=== PATIENT | male | born 1955 | race Caucasian/White ===

== ENCOUNTER 2021-08-16 06:24 | Observation (INO) | payer OTHER ==
[~2021-08-16] VITALS: Ht 180.3 cm; Wt 105.0 kg
--- NOTE | 2021-08-16 06:38 | PHYS DOC ---
Past Medical History Past Medical History: Diabetes-Type II, Hypertension Smoking Status: Never Smoker Alcohol Use: None Drug Use: None General Adult EDM: Chief Complaint: NEURO SYMPTOMS/DEFICITS HPI: HPI: Patient is a 66 year old male who was brought in by EMS, from his work at [employer], for intermittent episodes of left-sided weakness, specifically left arm and left leg weakness. He reports that symptoms began around 11 PM last night. He had a total of 3 episodes, the last of which occurred shortly prior to arrival. He reports that he feels fine now. He denies chest pain, dyspnea, palpitations. He does report a mild headache. He denies dizziness, vertigo. He denies syncope or near syncope. He denies head injury. He denies neck pain or back pain. He reports that he felt like his left leg almost gave out while he was at work this morning. He denies any actual fall or trauma. He reports that he felt like his foot "fell asleep" briefly last night, but he denies any current paresthesias symptoms at present. No previous similar symptoms. He has diabetes and hypertension. He reports that he recently started taking amlodipine, and he wondered if possibly this medication was affecting his current symptoms. He reports that his younger brother has had a history of DC and stroke at a much younger age than he is currently. He denies any previous history of TIA or stroke. He is not taking any anticoagulant medication. Review of Systems: Review of Systems: Constitutional: Denies fever or chills. [] Eyes: Denies change in visual acuity. No vision loss. HENT: Denies nasal congestion or sore throat. [] Respiratory: Denies cough or shortness of breath. [] Cardiovascular: Denies chest pain or edema. [] GI: Denies abdominal pain, nausea, vomiting Musculoskeletal: Denies back pain, neck pain or joint pain. [] Integument: Denies rash. [] Neurologic: He reports mild headache symptoms. He denies dizziness, vertigo, syncope. He reported brief and resolved tingling in his left foot and also reports intermittent left upper extremity and left lower extremity weakness. Psychiatric: Anxiety as it pertains to current clinical condition only. Heart Score: C/O Chest Pain: No Risk Factors: Risk Factors: DM, Current or recent (<one month) smoker, HTN, HLP, family history of CAD, obesity. Risk Scores: Score 0 - 3: 2.5% MACE over next 6 weeks - Discharge Home Score 4 - 6: 20.3% MACE over next 6 weeks - Admit for Clinical Observation Score 7 - 10: 72.7% MACE over next 6 weeks - Early Invasive Strategies Physical Exam: PE: Constitutional: Well developed, well nourished, no acute distress, non-toxic appearance. [] HENT: Normocephalic, atraumatic, oropharynx is patent and clear, no dental trauma, mucous membranes are moist. TMs are clear bilaterally. Eyes: PERRL, EOMI, conjunctiva normal, no discharge. No nystagmus. No scleral icterus Neck: Normal range of motion, no tenderness, supple, no stridor. Trachea is midline. No JVD Cardiovascular:Heart rate regular rhythm, was 2 radial and +2 posterior tibial pulses bilaterally, no peripheral edema, no cyanosis, warm and well-perfused Lungs & Thorax: Bilateral breath sounds clear to auscultation, no rales, rhonchi or wheezes Abdomen: Abdomen soft, nondistended, nontender to palpation. No palpable pulsatile mass. No audible bruit. Normal bowel sounds, no flank abdominal ecchymoses. Skin: Warm, dry, no erythema, no rash. [] Back: No tenderness, no CVA tenderness. [] Extremities: No tenderness, no cyanosis, no clubbing, ROM intact, no edema. No calf tenderness. Neurologic: He is awake, alert, oriented x3, cranial nerves II through XII grossly intact, 5 out of 5 motor strength all 4 extremities, no limb ataxia, no pronator drift or dysmetria, sensation is grossly intact, no visual deficits, speech is clear and fluent, gait is steady, NIH is 0 Psychologic: Affect normal, judgement normal, mood normal. [] EKG: EKG: EKG is interpreted at 0641 Rhythm is sinus Rate is 82 bpm No STEMI Radiology/Procedures: Radiology/Procedures: IMAGING REPORT Signed PATIENT: PERLITA SETH ACCOUNT: [id number] : 1955 LOCATION: ER AGE: 66 SEX: M EXAM STATUS: PRE ER ORD. PHYSICIAN: STEPHEN SMITH DO REASON: left sided weakness PROCEDURE: PORTABLE CHEST 1V EXAM: CHEST ONE VIEW. HISTORY: Left weakness. COMPARISON: None. FINDINGS: A frontal view of the chest is obtained. The right hemidiaphragm is moderately elevated. There is mild atelectasis in both bases. There is no pneumothorax or pleural effusion. The heart is moderately enlarged. IMPRESSION: 1. Moderate cardiomegaly. Electronically signed by: Mari Eli MD (08/16/2021 7:02 AM) [id number] DICTATED and SIGNED BY: GAVI ELI MD DATE: 08/16/[id number] 0 IMAGING REPORT Signed PATIENT: PERLITA SETH ACCOUNT: [id number] : 1955 LOCATION: ER AGE: 66 SEX: M EXAM STATUS: PRE ER ORD. PHYSICIAN: STEPHEN SMITH DO REASON: left sided weakness PROCEDURE: CT HEAD WO CONTRAST EXAM: CT HEAD WITHOUT CONTRAST. HISTORY: Left weakness. TECHNIQUE: Computed tomography of the head was performed without intravenous contrast. One or more of the following individualized dose reduction techniques were utilized for this examination: 1. Automated exposure control. 2. Adjustment of the mA and/or kV according to patient size. 3. Use of iterative reconstruction technique. COMPARISON: None. FINDINGS: There is no intracranial hemorrhage. Hypoattenuation within the periventricular white matter indicates mild chronic microangiopathic change. The ventricles are normal in size and position. The visualized paranasal sinuses appear clear. The orbits are unremarkable. The temporal bones are unremarkable. The calvarium reveals no suspicious lesions. IMPRESSION: 1. No acute intracranial findings. 2. Mild chronic microangiopathic white matter change. Electronically signed by: Mari Eli MD (08/16/2021 7:06 AM) [id number] DICTATED and SIGNED BY: GAVI ELI MD DATE: 08/16/[id number] 0 Course & Med Decision Making: Course & Med Decision Making Pertinent Labs and Imaging studies reviewed. (See chart for details) I discussed the findings, differential diagnosis and plan of care with the patient. He has a nonfocal neurologic exam. He remains asymptomatic at present. CT head is negative for acute intracranial hemorrhage hemorrhage or obvious large infarct. He is given p.o. aspirin. I have discussed my recommendation for admission to the hospital, he is comfortable with this. He is accepted by Dr. Garrison. As of 758, BP is 147/82, HR 70 and sinus. No antihypertensive medications given. He is admitted in stable condition. Dragon Disclaimer: Dragon Disclaimer: This electronic medical record was generated, in whole or in part, using a voice recognition dictation system. Departure Departure Impression: Primary Impression: TIA (transient ischemic attack) Disposition: ADMITTED INPATIENT Admitting Physician: LEIA (Dr. Garrison) Condition: STABLE SARAH,STEPHEN Kellie DO Aug 16, 2021 06:38
[2021-08-16 07:00] LABS: BASO % 0 % (0-3); EOS # 0.3 x10^3/uL (0.0-0.7); EOS % 3 % (0-3); HEMATOCRIT 42.7 % (39.0-53.0); LYMPH # 2.2 x10^3/uL (1.0-4.8); LYMPH % 18 % (24-48); MEAN CORPUSCULAR HEMOGLOBIN 30 pg (25-35); MEAN CORPUSCULAR HGB CONC 35 g/dL (31-37); MEAN CORPUSCULAR VOLUME 85 fL (79-100); MONO # 0.8 x10^3/uL (0.0-1.1); MONO % 6 % (0-9); NEUT # 8.8 x10^3/uL (1.8-7.7); NEUT % 72 % (31-73); PLATELET COUNT 158 x10^3/uL (140-400); RED BLOOD COUNT 5.06 x10^6/uL (4.30-5.70); RED CELL DISTRIBUTION WIDTH 14.4 % (11.5-14.5); WHITE BLOOD COUNT 12.2 x10^3/uL (4.0-11.0)
--- NOTE | 2021-08-16 07:04 | RAD ---
EXAM: CHEST ONE VIEW. HISTORY: Left weakness. COMPARISON: None. FINDINGS: A frontal view of the chest is obtained. The right hemidiaphragm is moderately elevated. There is mild atelectasis in both bases. There is no pneumothorax or pleural effusion. The heart is moderately enlarged. IMPRESSION: 1. Moderate cardiomegaly. Electronically signed by: Mari Eli MD (08/16/2021 7:02 AM) [id number]
--- NOTE | 2021-08-16 07:08 | RAD ---
EXAM: CT HEAD WITHOUT CONTRAST. HISTORY: Left weakness. TECHNIQUE: Computed tomography of the head was performed without intravenous contrast. One or more of the following individualized dose reduction techniques were utilized for this examination: 1. Automated exposure control. 2. Adjustment of the mA and/or kV according to patient size. 3. Use of iterative reconstruction technique. COMPARISON: None. FINDINGS: There is no intracranial hemorrhage. Hypoattenuation within the periventricular white matte r indicates mild chronic microangiopathic change. The ventricles are normal in size and position. The visualized paranasal sinuses appear clear. The orbits are unremarkable. The temporal bones are un remarkable. The calvarium reveals no suspicious lesions. IMPRESSION: 1. No acute intracranial findings. 2. Mild chronic microangiopathic white matter change. Electronically signed by: Mari Eli MD (08/16/2021 7:06 AM) MACY
[2021-08-16 07:11] LABS: CALCIUM 8.6 mg/dL (8.5-10.1); CREATININE 1.4 mg/dL (0.7-1.3); POTASSIUM 3.4 mmol/L (3.5-5.1)
[2021-08-16 07:16] LABS: MAGNESIUM 2.1 mg/dL (1.8-2.4); PHOSPHORUS 3.4 mg/dL (2.6-4.7)
[2021-08-16] MEDS ORDERED: IV NORMAL SALINE 1000ML BAG 1,000 ML IV ONE ×2 (07:30→13:45)
[2021-08-16] MEDS ORDERED: ACETAMINOPHEN 325 MG TABLET. PO PRN ×2 (07:30→13:45)
[2021-08-16] MEDS ORDERED: ONDANSETRON PF 4 MG/2 ML VIAL. IVP PRN (07:30)
[2021-08-16] MEDS ORDERED: ASPIRIN ENTERIC COATED 325 MG TABLET.DR. PO ONE (07:30)
[2021-08-16] MEDS ORDERED: POTASSIUM CHLORIDE 20 MEQ TABLET.ER. PO ONE (08:15)
[2021-08-16 11:26] LABS: BILIRUBIN,URINE NEGATIVE (NEG); CLARITY,URINE CLEAR; COLOR,URINE YELLOW; NITRITE,URINE NEGATIVE (NEG); PROTEIN,URINE NEGATIVE (NEG-TRACE); UROBILINOGEN,URINE 0.2 mg/dL (0.2 mg/dL)
[2021-08-16 11:45] LABS: HYALINE CASTS, URINE OCCASIONAL /HPF
[2021-08-16 11:46] LABS: BACTERIA,URINE 0 /HPF (0-FEW); RBC,URINE 0 /HPF (0-2)
--- NOTE | 2021-08-16 13:06 | PDOC1 ---
History and Physical Date of Admission Date of Admission DATE: 08/16/21 TIME: 13:00 History of Present Illness History of Present Illness MR. Correa is a 66 year old male admit for left sided weakness. Last night, he was work at [employer], has 3 episodes of acute left sided weakness, first was short and limited and imrpoved after a few minutes. second was more sevefe and he could not walk and needed a wheelchair and assistance and EMS was called. He reports that he feels much better now, maybe at his baseline. no chest pain strong family histoyr, dad of CVA x4, mom of CAD age 58,. younger brother with mult heart attacks. his primary care is Dr. Kerr, from [facility]. He takes 70/30 insulin on a PRN basis, once a day if his blood sugar is > 160 He has diabetes and hypertension, takes gabapentin for nerve pain. recently started taking amlodipine, a Past Medical History Cardiovascular: HTN CENTRAL NERVOUS SYSTEM: Periperal neuropathy Heme/Onc: No pertinent hx Hepatobiliary: No pertinent hx Psych: No pertinent hx Musculoskeletal: low back pain Rheumatologic: No pertinent hx Endocrine: Diabetes Family History Family History: No Significant Social History Smoke: No ALCOHOL: none Drugs: None Current Problem List Problem List Problems Medical Problems: (1) TIA (transient ischemic attack) Status: Acute Current Medications Current Medications Current Medications Aspirin (Ecotrin) 325 mg 1X ONCE PO Last administered on 08/16/21at 07:43; Start 08/16/21 at 07:30; Stop 08/16/21 at 07:31; Status DC Ondansetron HCl (Zofran) 4 mg PRN Q8HRS PRN IVP NAUSEA/VOMITING; Start 08/16/21 at 07:30; Stop 08/17/21 at 07:29 Acetaminophen (Tylenol) 650 mg PRN Q4HRS PRN PO pain or fever; Start 08/16/21 at 07:30 Sodium Chloride 1,000 ml @ 75 mls/hr 1X ONCE IV Last administered on 08/16/21at 07:44; Start 08/16/21 at 07:30; Stop 08/16/21 at 20:49 Potassium Chloride (Klor-Con) 40 meq 1X ONCE PO Last administered on 08/16/21at 11:25; Start 08/16/21 at 08:15; Stop 08/16/21 at 08:16; Status DC Amlodipine Besylate (Norvasc) 5 mg DAILY PO ; Start 08/16/21 at 12:45 Insulin Human Lispro (HumaLOG) 15 units TIDWMEALS SQ ; Start 08/16/21 at 17:00; Status UNV Allergies Allergies: Coded Allergies: No Known Drug Allergies (Unverified , 08/16/21) ROS General: No: Chills, Night Sweats, Fatigue, Malaise, Appetite, Other PSYCHOLOGICAL ROS: No: Anxiety, Behavioral Disorder, Concentration difficultie, Decreased libido, Depression, Disorientation, Hallucinations, Hostility, Irritablity, Memory difficulties, Mood Swings, Obsessive thoughts, Physical abuse, Sexual abuse, Sleep disturbances, Suicidal ideation, Other Eyes: No Blurry vision, No Decreased vision, No Double vision, No Dry eyes, No Excessive tearing, No Eye Pain, No Itchy Eyes, No Loss of vision, No Photophob ia, No Scotomata, No Uses contacts, No Uses glasses, No Other HEENT: No: Heacaches, Visual Changes, Hearing change, Nasal congestion, Nasal discharge, Oral lesions, Sinus pain, Sore Throat, Epistaxis, Sneezing, Snoring, Tinnitus, Vertigo, Vocal changes, Other Respiratory: No: Cough, Hemoptysis, Orthopnea, Pleuritic Pain, Shortness of breath, SOB with excertion, Sputum Changes, Stridor, Tachypnea, Wheezing, Other Cardiovascular: No Chest Pain, No Palpitations, No Orthopnea, No Paroxysmal Noc. Dyspnea, No Edema, No Lt Headedness, No Other Gastrointestinal: No Nausea, No Vomiting, No Abdominal Pain, No Diarrhea, No Constipation, No Melena, No Hematochezia, No Other Genitourinary: No Dysuria, No Frequency, No Incontinence, No Hematuria, No Retention, No Discharge, No Urgency, No Pain, No Flank Pain, No Other, No , No , No , No , No , No , No Musculoskeletal: Yes Muscular Weakness (left transient ); No Gait Disturbance, No Joint Pain, No Joint Stiffness, No Joint Swelling, No Muscle Pain, No Pain In:, No Swelling In:, No Other Neurological: Yes Gait Disturbance; No Behavorial Changes, No Bowel/Bladder ControlChng, No Confusion, No Dizziness, No Headaches, No Impaired Coord/balance, No Memory Loss, No Numbness/Tingling, No Seizures, No Speech Problems, No Tremors, No Visual Changes, No Weakness, No Other Skin: No Dry Skin, No Eczema, No Hair Changes, No Lumps, No Mole Changes, No Mottling, No Nail Changes, No Pruritus, No Rash, No Skin Lesion Changes, No Other, No Acne Physical Exam General: Alert, Cooperative, No acute distress HEENT: Atraumatic, EOMI Lungs: Clear to auscultation Heart: S1S2 (reg on tele, good pulses, ) Abdomen: Soft (obese, ) Rectal Exam: not examined Extremities: No cyanosis, No edema Skin: No significant lesion Neuro: Normal gait, Normal speech, Normal tone, Sensation intact Psych/Mental Status: Mental status NL, Mood NL Vitals Vitals Vital Signs Date Time Temp Pulse Resp B/P (MAP) Pulse Ox O2 Delivery O2 Flow Rate FiO2 08/16/21 12:00 74 18 179/77 (111) 96 Room Air 08/16/21 06:25 98.5 98.5 Labs Labs Laboratory Tests Test 08/16/21 06:35 08/16/21 11:15 White Blood Count 12.2 x10^3/uL (4.0-11.0) Red Blood Count 5.06 x10^6/uL (4.30-5.70) Hemoglobin 15.0 g/dL (13.0-17.5) Hematocrit 42.7 % (39.0-53.0) Mean Corpuscular Volume 85 fL (79-100) Mean Corpuscular Hemoglobin 30 pg (25-35) Mean Corpuscular Hemoglobin Concent 35 g/dL (31-37) Red Cell Distribution Width 14.4 % (11.5-14.5) Platelet Count 158 x10^3/uL (140-400) Neutrophils (%) (Auto) 72 % (31-73) Lymphocytes (%) (Auto) 18 % (24-48) Monocytes (%) (Auto) 6 % (0-9) Eosinophils (%) (Auto) 3 % (0-3) Basophils (%) (Auto) 0 % (0-3) Neutrophils # (Auto) 8.8 x10^3/uL (1.8-7.7) Lymphocytes # (Auto) 2.2 x10^3/uL (1.0-4.8) Monocytes # (Auto) 0.8 x10^3/uL (0.0-1.1) Eosinophils # (Auto) 0.3 x10^3/uL (0.0-0.7) Basophils # (Auto) 0.0 x10^3/uL (0.0-0.2) Sodium Level 141 mmol/L (136-145) Potassium Level 3.4 mmol/L (3.5-5.1) Chloride Level 105 mmol/L (98-107) Carbon Dioxide Level 30 mmol/L (21-32) Anion Gap 6 (6-14) Blood Urea Nitrogen 27 mg/dL (8-26) Creatinine 1.4 mg/dL (0.7-1.3) Estimated GFR (Cockcroft-Gault) 51.0 Glucose Level 85 mg/dL (70-99) Calcium Level 8.6 mg/dL (8.5-10.1) Phosphorus Level 3.4 mg/dL (2.6-4.7) Magnesium Level 2.1 mg/dL (1.8-2.4) Creatine Kinase 126 U/L (39-308) Troponin I High Sensitivity 11 ng/L (4-75) Urine Collection Type Unknown Urine Color Yellow Urine Clarity Clear Urine pH 6.0 (<5.0-8.0) Urine Specific Thompson 1.015 (1.000-1.030) Urine Protein Negative mg/dL (NEG-TRACE) Urine Glucose (UA) 100 mg/dL (NEG) Urine Ketones (Stick) Negative mg/dL (NEG) Urine Blood Negative (NEG) Urine Nitrite Negative (NEG) Urine Bilirubin Negative (NEG) Urine Urobilinogen Dipstick 0.2 mg/dL (0.2 mg/dL) Urine Leukocyte Esterase Negative (NEG) Urine RBC 0 /HPF (0-2) Urine WBC 1-4 /HPF (0-4) Urine Squamous Epithelial Cells Few /LPF Urine Bacteria 0 /HPF (0-FEW) Urine Hyaline Casts Occasional /HPF Laboratory Tests Test 08/16/21 06:35 08/16/21 11:15 White Blood Count 12.2 x10^3/uL (4.0-11.0) Red Blood Count 5.06 x10^6/uL (4.30-5.70) Hemoglobin 15.0 g/dL (13.0-17.5) Hematocrit 42.7 % (39.0-53.0) Mean Corpuscular Volume 85 fL (79-100) Mean Corpuscular Hemoglobin 30 pg (25-35) Mean Corpuscular Hemoglobin Concent 35 g/dL (31-37) Red Cell Distribution Width 14.4 % (11.5-14.5) Platelet Count 158 x10^3/uL (140-400) Neutrophils (%) (Auto) 72 % (31-73) Lymphocytes (%) (Auto) 18 % (24-48) Monocytes (%) (Auto) 6 % (0-9) Eosinophils (%) (Auto) 3 % (0-3) Basophils (%) (Auto) 0 % (0-3) Neutrophils # (Auto) 8.8 x10^3/uL (1.8-7.7) Lymphocytes # (Auto) 2.2 x10^3/uL (1.0-4.8) Monocytes # (Auto) 0.8 x10^3/uL (0.0-1.1) Eosinophils # (Auto) 0.3 x10^3/uL (0.0-0.7) Basophils # (Auto) 0.0 x10^3/uL (0.0-0.2) Sodium Level 141 mmol/L (136-145) Potassium Level 3.4 mmol/L (3.5-5.1) Chloride Level 105 mmol/L (98-107) Carbon Dioxide Level 30 mmol/L (21-32) Anion Gap 6 (6-14) Blood Urea Nitrogen 27 mg/dL (8-26) Creatinine 1.4 mg/dL (0.7-1.3) Estimated GFR (Cockcroft-Gault) 51.0 Glucose Level 85 mg/dL (70-99) Calcium Level 8.6 mg/dL (8.5-10.1) Phosphorus Level 3.4 mg/dL (2.6-4.7) Magnesium Level 2.1 mg/dL (1.8-2.4) Creatine Kinase 126 U/L (39-308) Troponin I High Sensitivity 11 ng/L (4-75) Urine Collection Type Unknown Urine Color Yellow Urine Clarity Clear Urine pH 6.0 (<5.0-8.0) Urine Specific Thompson 1.015 (1.000-1.030) Urine Protein Negative mg/dL (NEG-TRACE) Urine Glucose (UA) 100 mg/dL (NEG) Urine Ketones (Stick) Negative mg/dL (NEG) Urine Blood Negative (NEG) Urine Nitrite Negative (NEG) Urine Bilirubin Negative (NEG) Urine Urobilinogen Dipstick 0.2 mg/dL (0.2 mg/dL) Urine Leukocyte Esterase Negative (NEG) Urine RBC 0 /HPF (0-2) Urine WBC 1-4 /HPF (0-4) Urine Squamous Epithelial Cells Few /LPF Urine Bacteria 0 /HPF (0-FEW) Urine Hyaline Casts Occasional /HPF VTE Prophylaxis Ordered VTE Prophylaxis Devices: No VTE Pharmacological Prophylaxi: No Assessment/Plan Assessment/Plan acute left sided weakness, transient TIA obese, BMI 36 htn, norvac DM2, metformin and insulin, with neuroopathy, admit, eval, cardiomegaly on CXR, will check echo, TIA risk neuro consujlt may need MRI CKD 3, hypokalemia Justifications for Admission Other Justification RANDY WHITLOCK MD Aug 16, 2021 13:05
[2021-08-16] MEDS ORDERED: ASPIRIN RECTAL 300 MG SUPP. PR PRN (13:45)
--- NOTE | 2021-08-16 13:45 | PDOC2 ---
NEUROLOGY CONSULT Date of Service DOS: DATE: 08/16/21 TIME: 13:41 Reason for Consult Reason for Consult: Transient ischemic attack Referring Physician Referring Physician: Dr. Garrison Source Source: Chart review, Patient History of Present Illness History of Present Illness The patient is a 66-year-old right-handed male who was at work overnight and had 3 episodes of left leg weakness and some left hand clumsiness. His leg collapsed on him. A coworker helped him up. By the time he reached the emergency department he was symptom-free and has remained so since he arrived nearly 7 hours ago. He denies any prior history of neurological problems except for peripheral neuropathy from diabetes. He denies headache, diplopia, dysphagia, dysarthria, or cognitive change. Past Medical History Cardiovascular: HTN Endocrine: Diabetes Past Surgical History Past Surgical History: No pertinent history Family History Family History: CAD Social History Social History Single, [employer] worker, no alcohol or tobacco Current Medications Current Medications Current Medications Aspirin (Ecotrin) 325 mg 1X ONCE PO Last administered on 08/16/21at 07:43; Start 08/16/21 at 07:30; Stop 08/16/21 at 07:31; Status DC Ondansetron HCl (Zofran) 4 mg PRN Q8HRS PRN IVP NAUSEA/VOMITING; Start 08/16/21 at 07:30; Stop 08/17/21 at 07:29 Acetaminophen (Tylenol) 650 mg PRN Q4HRS PRN PO pain or fever; Start 08/16/21 at 07:30 Sodium Chloride 1,000 ml @ 75 mls/hr 1X ONCE IV Last administered on 08/16/21at 07:44; Start 08/16/21 at 07:30; Stop 08/16/21 at 20:49 Potassium Chloride (Klor-Con) 40 meq 1X ONCE PO Last administered on 08/16/21at 11:25; Start 08/16/21 at 08:15; Stop 08/16/21 at 08:16; Status DC Amlodipine Besylate (Norvasc) 5 mg DAILY PO ; Start 08/16/21 at 12:45 Allergies Allergies: Coded Allergies: No Known Drug Allergies (Unverified , 08/16/21) ROS Review of System Negative for fever, chills, weight loss, shortness of breath, chest pain, indigestion, hematochezia, melena, and dysuria. Full 14-point review of systems is negative. Physical Exam Physical Examination General: Well-developed, well-nourished, white male, in no acute distress HEENT: Normocephalic andatraumatic. Temporal arteriespulsatile and nontender. Neck: Supple without bruit, no meningismus Musculoskeletal: Stability:see neurologic. Gait exam:see neurologic. Tone:see neurologic.Strength:see neurologic. Neurological: Mental Status:intact, orientation, memory, attention span/concentration, language, fund of knowledge normal. Cranial Nerves:Pupils equal and reactive to light, extraocular movements areintact, visual campo are full to confrontation. Facial sensation is normal. There is no facial asymmetry. Vestibulo-ocular reflex is intact. Palate elevates and tongue protrudes in midline. All other cranial related problems are negative except as mentioned before.Reflexes:2+ and symmetric with flexor plantar responses. Motor:5/5 strength with normal tone and bulk. Coordination:Finger-nose finger and exyg-nu-kdzv testing are normal. Rapid alternating movements and fine finger movements are intact. Gait:not tested. Sensory:Normal pinprick, vibration, light touch, proprioception. Vitals VITALS Vital Signs Date Time Temp Pulse Resp B/P (MAP) Pulse Ox O2 Delivery O2 Flow Rate FiO2 08/16/21 12:00 74 18 179/77 (111) 96 Room Air 08/16/21 06:25 98.5 98.5 Labs Labs Laboratory Tests Test 08/16/21 06:35 08/16/21 11:15 White Blood Count 12.2 x10^3/uL (4.0-11.0) Red Blood Count 5.06 x10^6/uL (4.30-5.70) Hemoglobin 15.0 g/dL (13.0-17.5) Hematocrit 42.7 % (39.0-53.0) Mean Corpuscular Volume 85 fL (79-100) Mean Corpuscular Hemoglobin 30 pg (25-35) Mean Corpuscular Hemoglobin Concent 35 g/dL (31-37) Red Cell Distribution Width 14.4 % (11.5-14.5) Platelet Count 158 x10^3/uL (140-400) Neutrophils (%) (Auto) 72 % (31-73) Lymphocytes (%) (Auto) 18 % (24-48) Monocytes (%) (Auto) 6 % (0-9) Eosinophils (%) (Auto) 3 % (0-3) Basophils (%) (Auto) 0 % (0-3) Neutrophils # (Auto) 8.8 x10^3/uL (1.8-7.7) Lymphocytes # (Auto) 2.2 x10^3/uL (1.0-4.8) Monocytes # (Auto) 0.8 x10^3/uL (0.0-1.1) Eosinophils # (Auto) 0.3 x10^3/uL (0.0-0.7) Basophils # (Auto) 0.0 x10^3/uL (0.0-0.2) Sodium Level 141 mmol/L (136-145) Potassium Level 3.4 mmol/L (3.5-5.1) Chloride Level 105 mmol/L (98-107) Carbon Dioxide Level 30 mmol/L (21-32) Anion Gap 6 (6-14) Blood Urea Nitrogen 27 mg/dL (8-26) Creatinine 1.4 mg/dL (0.7-1.3) Estimated GFR (Cockcroft-Gault) 51.0 Glucose Level 85 mg/dL (70-99) Calcium Level 8.6 mg/dL (8.5-10.1) Phosphorus Level 3.4 mg/dL (2.6-4.7) Magnesium Level 2.1 mg/dL (1.8-2.4) Creatine Kinase 126 U/L (39-308) Troponin I High Sensitivity 11 ng/L (4-75) Urine Collection Type Unknown Urine Color Yellow Urine Clarity Clear Urine pH 6.0 (<5.0-8.0) Urine Specific [place] 1.015 (1.000-1.030) Urine Protein Negative mg/dL (NEG-TRACE) Urine Glucose (UA) 100 mg/dL (NEG) Urine Ketones (Stick) Negative mg/dL (NEG) Urine Blood Negative (NEG) Urine Nitrite Negative (NEG) Urine Bilirubin Negative (NEG) Urine Urobilinogen Dipstick 0.2 mg/dL (0.2 mg/dL) Urine Leukocyte Esterase Negative (NEG) Urine RBC 0 /HPF (0-2) Urine WBC 1-4 /HPF (0-4) Urine Squamous Epithelial Cells Few /LPF Urine Bacteria 0 /HPF (0-FEW) Urine Hyaline Casts Occasional /HPF Laboratory Tests Test 08/16/21 06:35 08/16/21 11:15 White Blood Count 12.2 x10^3/uL (4.0-11.0) Red Blood Count 5.06 x10^6/uL (4.30-5.70) Hemoglobin 15.0 g/dL (13.0-17.5) Hematocrit 42.7 % (39.0-53.0) Mean Corpuscular Volume 85 fL (79-100) Mean Corpuscular Hemoglobin 30 pg (25-35) Mean Corpuscular Hemoglobin Concent 35 g/dL (31-37) Red Cell Distribution Width 14.4 % (11.5-14.5) Platelet Count 158 x10^3/uL (140-400) Neutrophils (%) (Auto) 72 % (31-73) Lymphocytes (%) (Auto) 18 % (24-48) Monocytes (%) (Auto) 6 % (0-9) Eosinophils (%) (Auto) 3 % (0-3) Basophils (%) (Auto) 0 % (0-3) Neutrophils # (Auto) 8.8 x10^3/uL (1.8-7.7) Lymphocytes # (Auto) 2.2 x10^3/uL (1.0-4.8) Monocytes # (Auto) 0.8 x10^3/uL (0.0-1.1) Eosinophils # (Auto) 0.3 x10^3/uL (0.0-0.7) Basophils # (Auto) 0.0 x10^3/uL (0.0-0.2) Sodium Level 141 mmol/L (136-145) Potassium Level 3.4 mmol/L (3.5-5.1) Chloride Level 105 mmol/L (98-107) Carbon Dioxide Level 30 mmol/L (21-32) Anion Gap 6 (6-14) Blood Urea Nitrogen 27 mg/dL (8-26) Creatinine 1.4 mg/dL (0.7-1.3) Estimated GFR (Cockcroft-Gault) 51.0 Glucose Level 85 mg/dL (70-99) Calcium Level 8.6 mg/dL (8.5-10.1) Phosphorus Level 3.4 mg/dL (2.6-4.7) Magnesium Level 2.1 mg/dL (1.8-2.4) Creatine Kinase 126 U/L (39-308) Troponin I High Sensitivity 11 ng/L (4-75) Urine Collection Type Unknown Urine Color Yellow Urine Clarity Clear Urine pH 6.0 (<5.0-8.0) Urine Specific [place] 1.015 (1.000-1.030) Urine Protein Negative mg/dL (NEG-TRACE) Urine Glucose (UA) 100 mg/dL (NEG) Urine Ketones (Stick) Negative mg/dL (NEG) Urine Blood Negative (NEG) Urine Nitrite Negative (NEG) Urine Bilirubin Negative (NEG) Urine Urobilinogen Dipstick 0.2 mg/dL (0.2 mg/dL) Urine Leukocyte Esterase Negative (NEG) Urine RBC 0 /HPF (0-2) Urine WBC 1-4 /HPF (0-4) Urine Squamous Epithelial Cells Few /LPF Urine Bacteria 0 /HPF (0-FEW) Urine Hyaline Casts Occasional /HPF Images Images CT HEAD WITHOUT CONTRAST. HISTORY: Left weakness. TECHNIQUE: Computed tomography of the head was performed without intravenous contrast. One or more of the following individualized dose reduction techniques were utilized for this examination: 1. Automated exposure control. 2. Adjustment of the mA and/or kV according to patient size. 3. Use of iterative reconstruction technique. COMPARISON: None. FINDINGS: There is no intracranial hemorrhage. Hypoattenuation within the periventricular white matter indicates mild chronic microangiopathic change. The ventricles are normal in size and position. The visualized paranasal sinuses appear clear. The orbits are unremarkable. The temporal bones are unremarkable. The calvarium reveals no suspicious lesions. IMPRESSION: 1. No acute intracranial findings. 2. Mild chronic microangiopathic white matter change. Assessment/Plan Assessment/Plan Impression: 3 transient ischemic attacks affecting the left side of the body, normal exam now, risk factors include his diabetes and hypertension. He does not know his lipid status. His blood pressure was not that elevated so we cannot blame hypertension and there were no significant metabolic disturbances. His most recent medication is amlodipine but I doubt that would cause this episode. Recommendations: Admit to the hospital MRI of the brain CT angiogram, I see carotid Doppler studies were also ordered Aspirin Check lipids Rehabilitation screening Also see stroke orders Home as soon as tomorrow if work-up is negative. Discussed with Drs. Garrison and Philippe. Thank you for letting me help with the patient's care. CAIT DELANEY MD Aug 16, 2021 13:45
[2021-08-16] MEDS ORDERED: CONTRAST GIVEN. MC PRN (14:30)
[2021-08-16] MEDS ORDERED: IOHEXOL 300 MG/ML 100ML VIAL. IV ONE (14:30)
[2021-08-16 15:47] VITALS: BP 181/105
[2021-08-16] MEDS ORDERED: DULO30CA2 PO (15:52)
[2021-08-16] MEDS ORDERED: OLME40TA12 PO (15:52)
[2021-08-16] MEDS ORDERED: HYDR25TA10 PO (15:52)
[2021-08-16] MEDS ORDERED: ANAS1TAB47 PO (15:52)
[2021-08-16] MEDS ORDERED: CINN500C2 PO ×2 (15:52)
[2021-08-16] MEDS ORDERED: TRAZ-118 PO (15:52)
[2021-08-16] MEDS ORDERED: GABA600T7 PO (15:52)
[2021-08-16] MEDS ORDERED: CLON0.1T PO (15:52)
[2021-08-16] MEDS ORDERED: TRAM50TA PO (15:52)
[2021-08-16] MEDS ORDERED: AMLO5TAB4 PO (15:52)
[2021-08-16] MEDS ORDERED: OMEG-131 PO (15:52)
[2021-08-16] MEDS ORDERED: GLIM4TAB8 PO (15:52)
[2021-08-16] MEDS ORDERED: METF500T16 PO (15:52)
--- NOTE | 2021-08-16 16:27 | RAD ---
EXAM: Bilateral carotid duplex with waveform analysis. CLINICAL HISTORY: TIA. . TECHNIQUE: Longitudinal and transverse sonographic images of the bilateral carotid arteries was perfo rmed utilizing grayscale, color and spectral Doppler techniques. COMPARISON: None FINDINGS: Mild plaque in the right carotid bulb. Vertebral arteries: Antegrade flow bilaterally. Right: PSV CCA (cm/s): 90 PSV ICA (cm/s): 58 EDV ICA (cm/s): 23 PSV ECA (cm/s): 83 ICA/CCA Ratio: 0.64 Left: PSV CCA (cm/s): 128 PSV ICA (cm/s): 65 EDV ICA (cm/s): 23 PSV ECA (cm/s): 66 ICA/CCA Ratio: 0.57 IMPRESSION: Less than 50 percent stenosis of the internal carotid arteries bilaterally. Consensus Panel Quigley-scale and Doppler US Criteria for Diagnosis of ICA Stenosis Degree of Stenosis (%) ICA PSV (Cm/sec) Plaque Estimate (%)* Normal <125 None <50 <125 <50 50-69 125-230 >50 >70 but < near occlusion >230 >50 Near occlusion High, low, or undetectable Visible Total occlusion Undetectable Visible, no detectable lumen *Plaque estimate (diameter reduction) with quigley-scale and color Doppler US Degree of Stenosis (%) ICA/CCA PSV Ratio ICA EDV (cm/sec) Normal <2.0 <40 <50 <2.0 <40 50-69 2.0-4.0 40-100 >70 but < near occlusion >4.0 >100 Near occlusion Variable Variable Total occlusion Not applicable Not applicable Electronically signed by: Vicki Duarte MD (08/16/2021 4:25 PM) [id number]
[2021-08-16] MEDS ORDERED: DEXTROSE 50% 25 GM / 50ML DISP.SYRIN. IV PRN (17:00)
[2021-08-16] MEDS ORDERED: hydrALAZINE 20 MG/ML VIAL. IVP PRN (17:00)
[2021-08-16] MEDS ORDERED: INSULIN LISPRO 300 UNITS/3 ML VIAL. SQ SCH ×2 (17:00)
[2021-08-16] MEDS ORDERED: traMADol 50 MG TABLET PO PRN (17:00)
[2021-08-16] MEDS: INSULIN LISPRO 300 UNITS/3 ML VIAL. SQ SCH (17:00)
--- NOTE | 2021-08-16 17:22 | RAD ---
CT angiography head and neck with contrast Stenosis calculations for CT, MR, and conventional angiography are based upon measurements of the dis cheryl ICA diameter in accordance with the NASCET methodology. Stenosis calculations for carotid ultraso und studies are derived from validated velocity criteria which are known to correlate with the NASCET methodology. PQRS statement: CT scans at this facility use dose reduction including either automated exposure cont rol, iterative reconstructions, and /or weight based radiation dosing via mA and kV modification when appropriate to reduce radiation dose to as low as reasonably achievable. History left sided transient ischemic attack symptoms. Contrast: 60 mL Omnipaque 300 intravenous contrast with 3-D MIP reconstructions of the arteries acqui red. COMPARISON: Carotid Doppler ultrasound August 16, 2021 CTA neck findings: common ostium of the innominate and left common carotid arteries from the aortic arch. No ostial stenosis of the vessels arising from the aortic arch. Right vertebral artery is mildl y dominant. No sizable plaque, vessel irregularity, dissection, thrombosis, stenosis or occlusion. Th ere is a tiny 2 mm calcified plaque at the right carotid artery bifurcation without stenosis. Mild ch anges of cervical disc disease. CTA head findings: Tortuosity of the vertebral and basilar arteries. Mild calcified plaque right vert ebral artery wasn't imaged in stenosis. There may be some mild soft plaquing of the basilar artery wi thout narrowing and stenosis with narrowing of less than 50%. Patent left posterior communicating art jacy. Very mild calcified plaque cavernous carotid arteries without significant stenosis. The right mi ddle cerebral artery proximal M1 segment at its origin from the carotid terminus demonstrates a short segment moderate stenosis with a minimal luminal diameter of approximately 1.5 mm relative to the mo re normal downstream diameter of the MCA of 2.8 mm indicating a stenosis of 50% or slightly greater. There is no thrombosis, occlusion or aneurysm of the intracranial arteries. IMPRESSION: 1. No large vessel occlusion. 2. Plaquing of arteries of the head and neck. This contributes to a moderate stenosis of the right mi ddle cerebral artery. See above. Electronically signed by: Tushar Hoyos MD (08/16/2021 5:20 PM) [facility]
--- NOTE | 2021-08-16 18:21 | EKG ---
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
[2021-08-16 19:55] VITALS: BP 179/100
[2021-08-16] MEDS: GABAPENTIN 400 MG CAPSULE. PO SCH (20:37)
[2021-08-16] MEDS ORDERED: DULoxetine HCL 30 MG CAPSULE.DR PO SCH (21:00)
[2021-08-16] MEDS ORDERED: INSULIN GLARGINE SYRINGE. SQ SCH (21:00)
[2021-08-16] MEDS ORDERED: cloNIDine HCL 0.1 MG TABLET PO SCH (21:00)
[2021-08-16] MEDS ORDERED: ATORVASTATIN CALCIUM 20 MG TABLET PO SCH (21:00)
[2021-08-16] MEDS ORDERED: traZODone 50 MG TABLET. PO SCH (21:00)
[2021-08-16 23:05] VITALS: BP 166/87
[2021-08-17 03:01] VITALS: BP 192/103
[2021-08-17 06:18] LABS: BASO % 1 % (0-3); EOS # 0.4 x10^3/uL (0.0-0.7); EOS % 4 % (0-3); HEMATOCRIT 43.2 % (39.0-53.0); HEMOGLOBIN 15.1 g/dL (13.0-17.5); LYMPH # 1.8 x10^3/uL (1.0-4.8); LYMPH % 19 % (24-48); MEAN CORPUSCULAR HEMOGLOBIN 29 pg (25-35); MEAN CORPUSCULAR HGB CONC 35 g/dL (31-37); MEAN CORPUSCULAR VOLUME 84 fL (79-100); MONO # 0.5 x10^3/uL (0.0-1.1); MONO % 5 % (0-9); NEUT # 6.7 x10^3/uL (1.8-7.7); NEUT % 71 % (31-73); PLATELET COUNT 152 x10^3/uL (140-400); RED BLOOD COUNT 5.16 x10^6/uL (4.30-5.70); RED CELL DISTRIBUTION WIDTH 14.6 % (11.5-14.5); WHITE BLOOD COUNT 9.4 x10^3/uL (4.0-11.0)
[2021-08-17 06:21] LABS: ALBUMIN 3.4 g/dL (3.4-5.0); ALBUMIN/GLOBULIN RATIO 0.9 (1.0-1.7); CALCIUM 8.4 mg/dL (8.5-10.1); GFR 75.2; POTASSIUM 3.4 mmol/L (3.5-5.1); TOTAL BILIRUBIN 0.6 mg/dL (0.2-1.0); TOTAL PROTEIN 7.2 g/dL (6.4-8.2)
[2021-08-17 06:22] LABS: CHOLESTEROL/HDL RATIO 6.3
[2021-08-17 07:00] VITALS: BP 163/81
[2021-08-17] MEDS ORDERED: ASPIRIN ENTERIC COATED 325 MG TABLET.DR. PO SCH (08:00)
[2021-08-17] MEDS: GABAPENTIN 400 MG CAPSULE. PO SCH ×2 (08:37→14:22)
[2021-08-17] MEDS: INSULIN LISPRO 300 UNITS/3 ML VIAL. SQ SCH ×2 (08:39→12:02)
[2021-08-17 11:00] VITALS: BP 178/98
--- NOTE | 2021-08-17 12:14 | CARD ---
MR#: [id number] Date of Study: 08/17/2021 Ordering Physician: RANDY WHITLOCK, Referring Physician: RANDY WHITLOCK, Tech: Dian Galvez [facility] APPROVED REPORT EXAM: Two-dimensional and M-mode echocardiogram with Doppler and color Doppler. Other Information Quality : AverageHR: 89bpm Rhythm : NSR INDICATION CVA/TIA RISK FACTORS Hypertension Obesity Hyperlipidemia 2D DIMENSIONS RVDd3.1 (2.9-3.5cm)Left Atrium(2D)4.0 (1.6-4.0cm) IVSd1.3 (0.7-1.1cm)Aortic Root(2D)4.2 (2.0-3.7cm) LVDd5.1 (3.9-5.9cm)LVOT Diameter2.2 (1.8-2.4cm) PWd1.4 (0.7-1.1cm)LVDs2.8 (2.5-4.0cm) FS (%) 45.2 %SV93.7 ml LVEF(%)76.3 (>50%) Aortic Valve AoV Peak Howard.176.6cm/sAoV VTI29.5cm AO Peak GR.12.5mmHgLVOT Peak Howard.150.5cm/s AO Mean GR.6mmHgAVA (VMAX)3.12cm2 Mitral Valve MV E Siueqduj06.6cm/sMV DECEL [id number] MV A Ptlskawb590.4cm/sE/A Ratio0.6 Pulmonary Valve PV Peak Wfmjxbcg031.0cm/s Tricuspid Valve TR P. Tjnkgicw183qb/sTR Peak Gr.25mmHg LEFT VENTRICLE The left ventricle is normal size. There is mild concentric left ventricular hypertrophy. The left ve ntricular systolic function is normal. Estimated ejection fraction 60-65%. There is normal LV segmen cheryl wall motion. Transmitral Doppler flow pattern is Grade I-abnormal relaxation pattern. RIGHT VENTRICLE The right ventricle is normal size. There is normal right ventricular wall thickness. The right ventr icular systolic function is normal. ATRIA The left atrium size is normal. The right atrium size is normal. The interatrial septum is intact wit h no evidence for an atrial septal defect or patent foramen ovale as noted on 2-D or Doppler imaging. AORTIC VALVE The aortic valve is thickened but opens well. Doppler and Color Flow revealed trace aortic regurgitat ion. There is no significant aortic valvular stenosis. MITRAL VALVE The mitral valve is normal in structure and function. There is no evidence of mitral valve prolapse. There is no mitral valve stenosis. Doppler and Color Flow revealed no mitral valve regurgitation note d. TRICUSPID VALVE The tricuspid valve is normal in structure and function. Doppler and Color Flow revealed no tricuspid valve regurgitation noted. There is no tricuspid valve stenosis. PULMONIC VALVE The pulmonary valve is normal in structure and function. Doppler and Color Flow revealed no pulmonic valvular regurgitation. GREAT VESSELS The aortic root is mildly enlarged. The ascending aorta is Mildly dilated. The IVC is normal in size and collapses >50% with inspiration. PERICARDIAL EFFUSION There is no evidence of significant pericardial effusion. Critical Notification Critical Value: No <Conclusion> The left ventricular systolic function is normal. Estimated ejection fraction 60-65%. There is normal LV segmental wall motion. Transmitral Doppler flow pattern is Grade I-abnormal relaxation pattern. Trace aortic regurgitation. There is no evidence of significant pericardial effusion. Signed by : Ken Ortega, Electronically Approved : 08/17/2021 12:14:02
[2021-08-17] MEDS ORDERED: POTASSIUM CHLORIDE 20 MEQ TABLET.ER. PO ONE (12:30)
--- NOTE | 2021-08-17 12:34 | PDOC ---
[employer]GRESS NOTE Date of Service DOS: DATE: 08/17/21 TIME: 12:29 Chief Complaint Chief Complaint TIA - Acute left sided weakness, transient CONCETTA - likely vasomotor nephropathy. hydration encouraged. Improved Obese, BMI 36 HTN - on norvasc. consider ANGELICA/ARB outpatient DM2, metformin and insulin, with neuropathy on gabapentin, hypokalemia - replaced History of Present Illness History of Present Illness MR. Correa is a 66 year old male w/ PMHx DM2 with neuropathy, HTN who came in 08/16/21 admit for left sided weakness. He was work at [employer], has 3 episodes of acute left sided weakness, first was short and limited and improved after a few minutes. Second was more severe and he could not walk and needed a wheelchair and assistance and EMS was called. Already improved in ED on evaluation. Strong family history, dad of CVA x4, mom of CAD age 58,. younger brother with mult heart attacks. his primary care is Dr. Kerr, from [place], [place]. He takes 70/30 insulin on a PRN basis, once a day if his blood sugar is > 160 08/17: Echocardiogram with CT a with no acute abnormalities. Telemetry reviewed sinus tach he no A. fib. Started on high intensity statin. Therapy evaluations. Awaiting MRI. Vitals/I&O Vitals/I&O: Vital Signs Date Time Temp Pulse Resp B/P (MAP) Pulse Ox O2 Delivery O2 Flow Rate FiO2 08/17/21 08:35 90 192/103 08/17/21 08:10 Room Air 08/17/21 07:00 98.1 19 98 98.1 I & O 08/16/21 08/16/21 08/17/21 15:00 23:00 07:00 Intake Total 1000 ml 60 ml 0 ml Output Total 300 ml Balance 1000 ml -240 ml 0 ml Physical Exam General: Alert, Cooperative, No acute distress Abdomen: Soft (obese, ) Extremities: No cyanosis, No edema Skin: No significant lesion Labs Labs: Laboratory Tests Test 08/16/21 16:56 08/16/21 20:42 08/17/21 04:35 08/17/21 07:34 Glucose (Fingerstick) 139 mg/dL (70-99) 207 mg/dL (70-99) 167 mg/dL (70-99) White Blood Count 9.4 x10^3/uL (4.0-11.0) Red Blood Count 5.16 x10^6/uL (4.30-5.70) Hemoglobin 15.1 g/dL (13.0-17.5) Hematocrit 43.2 % (39.0-53.0) Mean Corpuscular Volume 84 fL (79-100) Mean Corpuscular Hemoglobin 29 pg (25-35) Mean Corpuscular Hemoglobin Concent 35 g/dL (31-37) Red Cell Distribution Width 14.6 % (11.5-14.5) Platelet Count 152 x10^3/uL (140-400) Neutrophils (%) (Auto) 71 % (31-73) Lymphocytes (%) (Auto) 19 % (24-48) Monocytes (%) (Auto) 5 % (0-9) Eosinophils (%) (Auto) 4 % (0-3) Basophils (%) (Auto) 1 % (0-3) Neutrophils # (Auto) 6.7 x10^3/uL (1.8-7.7) Lymphocytes # (Auto) 1.8 x10^3/uL (1.0-4.8) Monocytes # (Auto) 0.5 x10^3/uL (0.0-1.1) Eosinophils # (Auto) 0.4 x10^3/uL (0.0-0.7) Basophils # (Auto) 0.0 x10^3/uL (0.0-0.2) Sodium Level 142 mmol/L (136-145) Potassium Level 3.4 mmol/L (3.5-5.1) Chloride Level 104 mmol/L (98-107) Carbon Dioxide Level 28 mmol/L (21-32) Anion Gap 10 (6-14) Blood Urea Nitrogen 20 mg/dL (8-26) Creatinine 1.0 mg/dL (0.7-1.3) Estimated GFR (Cockcroft-Gault) 75.2 BUN/Creatinine Ratio 20 (6-20) Glucose Level 172 mg/dL (70-99) Calcium Level 8.4 mg/dL (8.5-10.1) Total Bilirubin 0.6 mg/dL (0.2-1.0) Aspartate Amino Transf (AST/SGOT) 22 U/L (15-37) Alanine Aminotransferase (ALT/SGPT) 51 U/L (16-63) Alkaline Phosphatase 66 U/L (46-116) Total Protein 7.2 g/dL (6.4-8.2) Albumin 3.4 g/dL (3.4-5.0) Albumin/Globulin Ratio 0.9 (1.0-1.7) Triglycerides Level 281 mg/dL (0-150) Cholesterol Level 170 mg/dL (0-200) LDL Cholesterol, Calculated 87 mg/dL (0-100) VLDL Cholesterol, Calculated 56 mg/dL (0-40) Non-HDL Cholesterol Calculated 143 mg/dL (0-129) HDL Cholesterol 27 mg/dL (40-60) Cholesterol/HDL Ratio 6.3 Test 08/17/21 10:45 Glucose (Fingerstick) 204 mg/dL (70-99) Assessment and Plan Assessmemt and Plan Problems Medical Problems: (1) TIA (transient ischemic attack) Status: Acute Comment Review of Relevant I have reviewed the following items rommel (where applicable) has been applied. Medications: Current Medications Medications (Trade) Dose Ordered Sig/Jenelle Route PRN Reason Start Time Stop Time Status Last Admin Dose Admin Amlodipine Besylate (Norvasc) 5 mg DAILY PO 08/16/21 12:45 08/17/21 08:35 Atorvastatin Calcium (Lipitor) 20 mg QHS PO 08/16/21 21:00 08/17/21 08:29 DC 08/16/21 20:38 Insulin Glargine (Lantus Syringe) 20 unit QHS SQ 08/16/21 21:00 08/16/21 20:45 Aspirin (Ecotrin) 325 mg DAILYWBKFT PO 08/17/21 08:00 08/17/21 08:35 Iohexol (Omnipaque 300 Mg/ml) 75 ml 1X ONCE IV 08/16/21 14:30 08/16/21 14:31 DC 08/16/21 14:55 Insulin Human Lispro (HumaLOG) 0-9 UNITS TIDWMEALS SQ 08/16/21 17:00 08/17/21 12:02 Clonidine HCl (Catapres) 0.1 mg QHS PO 08/16/21 21:00 08/16/21 20:38 Duloxetine HCl (Cymbalta) 30 mg QHS PO 08/16/21 21:00 08/16/21 20:38 Trazodone HCl (Desyrel) 50 mg QHS PO 08/16/21 21:00 08/16/21 20:38 Gabapentin (Neurontin) 1,200 mg TID PO 08/16/21 21:00 08/17/21 08:37 Hydralazine HCl (Apresoline Inj) 10 mg PRN Q4HRS PRN IVP ELEVATED BP, SEE COMMENTS 08/16/21 17:00 08/17/21 03:05 Justifications for Admission Other Justification LEA YANCEY MD Aug 17, 2021 12:34
--- NOTE | 2021-08-17 12:58 | PDOC ---
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 Hyperlipidemia Plan Await MRI of the brain Aspirin High-dose statin started Discharge later today if MRI negative Follow-up with his primary care physician to monitor blood pressure, lipids, diabetes Follow-up with me as needed Subjective No complaints, no more episodes Objective Vital Signs Date Time Temp Pulse Resp B/P (MAP) Pulse Ox O2 Delivery O2 Flow Rate FiO2 08/17/21 11:00 98.4 91 19 178/98 (124) 95 Room Air 98.4 Intake and Output 08/17/21 07:00 Intake Total 1060 ml Output Total 300 ml Balance 760 ml Intake Oral 60 ml IV Total 1000 ml Output Urine Total 300 ml Review of Relevant I have reviewed the following items rommel (where applicable) has been applied. Labs Laboratory Tests Test 08/16/21 06:35 08/16/21 11:15 08/16/21 16:56 08/16/21 20:42 White Blood Count 12.2 x10^3/uL (4.0-11.0) Red Blood Count 5.06 x10^6/uL (4.30-5.70) Hemoglobin 15.0 g/dL (13.0-17.5) Hematocrit 42.7 % (39.0-53.0) Mean Corpuscular Volume 85 fL (79-100) Mean Corpuscular Hemoglobin 30 pg (25-35) Mean Corpuscular Hemoglobin Concent 35 g/dL (31-37) Red Cell Distribution Width 14.4 % (11.5-14.5) Platelet Count 158 x10^3/uL (140-400) Neutrophils (%) (Auto) 72 % (31-73) Lymphocytes (%) (Auto) 18 % (24-48) Monocytes (%) (Auto) 6 % (0-9) Eosinophils (%) (Auto) 3 % (0-3) Basophils (%) (Auto) 0 % (0-3) Neutrophils # (Auto) 8.8 x10^3/uL (1.8-7.7) Lymphocytes # (Auto) 2.2 x10^3/uL (1.0-4.8) Monocytes # (Auto) 0.8 x10^3/uL (0.0-1.1) Eosinophils # (Auto) 0.3 x10^3/uL (0.0-0.7) Basophils # (Auto) 0.0 x10^3/uL (0.0-0.2) Sodium Level 141 mmol/L (136-145) Potassium Level 3.4 mmol/L (3.5-5.1) Chloride Level 105 mmol/L (98-107) Carbon Dioxide Level 30 mmol/L (21-32) Anion Gap 6 (6-14) Blood Urea Nitrogen 27 mg/dL (8-26) Creatinine 1.4 mg/dL (0.7-1.3) Estimated GFR (Cockcroft-Gault) 51.0 Glucose Level 85 mg/dL (70-99) Calcium Level 8.6 mg/dL (8.5-10.1) Phosphorus Level 3.4 mg/dL (2.6-4.7) Magnesium Level 2.1 mg/dL (1.8-2.4) Creatine Kinase 126 U/L (39-308) Troponin I High Sensitivity 11 ng/L (4-75) Urine Collection Type Unknown Urine Color Yellow Urine Clarity Clear Urine pH 6.0 (<5.0-8.0) Urine Specific [place] 1.015 (1.000-1.030) Urine Protein Negative mg/dL (NEG-TRACE) Urine Glucose (UA) 100 mg/dL (NEG) Urine Ketones (Stick) Negative mg/dL (NEG) Urine Blood Negative (NEG) Urine Nitrite Negative (NEG) Urine Bilirubin Negative (NEG) Urine Urobilinogen Dipstick 0.2 mg/dL (0.2 mg/dL) Urine Leukocyte Esterase Negative (NEG) Urine RBC 0 /HPF (0-2) Urine WBC 1-4 /HPF (0-4) Urine Squamous Epithelial Cells Few /LPF Urine Bacteria 0 /HPF (0-FEW) Urine Hyaline Casts Occasional /HPF Glucose (Fingerstick) 139 mg/dL (70-99) 207 mg/dL (70-99) Test 08/17/21 04:35 08/17/21 07:34 08/17/21 10:45 White Blood Count 9.4 x10^3/uL (4.0-11.0) Red Blood Count 5.16 x10^6/uL (4.30-5.70) Hemoglobin 15.1 g/dL (13.0-17.5) Hematocrit 43.2 % (39.0-53.0) Mean Corpuscular Volume 84 fL (79-100) Mean Corpuscular Hemoglobin 29 pg (25-35) Mean Corpuscular Hemoglobin Concent 35 g/dL (31-37) Red Cell Distribution Width 14.6 % (11.5-14.5) Platelet Count 152 x10^3/uL (140-400) Neutrophils (%) (Auto) 71 % (31-73) Lymphocytes (%) (Auto) 19 % (24-48) Monocytes (%) (Auto) 5 % (0-9) Eosinophils (%) (Auto) 4 % (0-3) Basophils (%) (Auto) 1 % (0-3) Neutrophils # (Auto) 6.7 x10^3/uL (1.8-7.7) Lymphocytes # (Auto) 1.8 x10^3/uL (1.0-4.8) Monocytes # (Auto) 0.5 x10^3/uL (0.0-1.1) Eosinophils # (Auto) 0.4 x10^3/uL (0.0-0.7) Basophils # (Auto) 0.0 x10^3/uL (0.0-0.2) Sodium Level 142 mmol/L (136-145) Potassium Level 3.4 mmol/L (3.5-5.1) Chloride Level 104 mmol/L (98-107) Carbon Dioxide Level 28 mmol/L (21-32) Anion Gap 10 (6-14) Blood Urea Nitrogen 20 mg/dL (8-26) Creatinine 1.0 mg/dL (0.7-1.3) Estimated GFR (Cockcroft-Gault) 75.2 BUN/Creatinine Ratio 20 (6-20) Glucose Level 172 mg/dL (70-99) Calcium Level 8.4 mg/dL (8.5-10.1) Total Bilirubin 0.6 mg/dL (0.2-1.0) Aspartate Amino Transf (AST/SGOT) 22 U/L (15-37) Alanine Aminotransferase (ALT/SGPT) 51 U/L (16-63) Alkaline Phosphatase 66 U/L (46-116) Total Protein 7.2 g/dL (6.4-8.2) Albumin 3.4 g/dL (3.4-5.0) Albumin/Globulin Ratio 0.9 (1.0-1.7) Triglycerides Level 281 mg/dL (0-150) Cholesterol Level 170 mg/dL (0-200) LDL Cholesterol, Calculated 87 mg/dL (0-100) VLDL Cholesterol, Calculated 56 mg/dL (0-40) Non-HDL Cholesterol Calculated 143 mg/dL (0-129) HDL Cholesterol 27 mg/dL (40-60) Cholesterol/HDL Ratio 6.3 Glucose (Fingerstick) 167 mg/dL (70-99) 204 mg/dL (70-99) Laboratory Tests Test 08/16/21 16:56 08/16/21 20:42 08/17/21 04:35 08/17/21 07:34 Glucose (Fingerstick) 139 mg/dL (70-99) 207 mg/dL (70-99) 167 mg/dL (70-99) White Blood Count 9.4 x10^3/uL (4.0-11.0) Red Blood Count 5.16 x10^6/uL (4.30-5.70) Hemoglobin 15.1 g/dL (13.0-17.5) Hematocrit 43.2 % (39.0-53.0) Mean Corpuscular Volume 84 fL (79-100) Mean Corpuscular Hemoglobin 29 pg (25-35) Mean Corpuscular Hemoglobin Concent 35 g/dL (31-37) Red Cell Distribution Width 14.6 % (11.5-14.5) Platelet Count 152 x10^3/uL (140-400) Neutrophils (%) (Auto) 71 % (31-73) Lymphocytes (%) (Auto) 19 % (24-48) Monocytes (%) (Auto) 5 % (0-9) Eosinophils (%) (Auto) 4 % (0-3) Basophils (%) (Auto) 1 % (0-3) Neutrophils # (Auto) 6.7 x10^3/uL (1.8-7.7) Lymphocytes # (Auto) 1.8 x10^3/uL (1.0-4.8) Monocytes # (Auto) 0.5 x10^3/uL (0.0-1.1) Eosinophils # (Auto) 0.4 x10^3/uL (0.0-0.7) Basophils # (Auto) 0.0 x10^3/uL (0.0-0.2) Sodium Level 142 mmol/L (136-145) Potassium Level 3.4 mmol/L (3.5-5.1) Chloride Level 104 mmol/L (98-107) Carbon Dioxide Level 28 mmol/L (21-32) Anion Gap 10 (6-14) Blood Urea Nitrogen 20 mg/dL (8-26) Creatinine 1.0 mg/dL (0.7-1.3) Estimated GFR (Cockcroft-Gault) 75.2 BUN/Creatinine Ratio 20 (6-20) Glucose Level 172 mg/dL (70-99) Calcium Level 8.4 mg/dL (8.5-10.1) Total Bilirubin 0.6 mg/dL (0.2-1.0) Aspartate Amino Transf (AST/SGOT) 22 U/L (15-37) Alanine Aminotransferase (ALT/SGPT) 51 U/L (16-63) Alkaline Phosphatase 66 U/L (46-116) Total Protein 7.2 g/dL (6.4-8.2) Albumin 3.4 g/dL (3.4-5.0) Albumin/Globulin Ratio 0.9 (1.0-1.7) Triglycerides Level 281 mg/dL (0-150) Cholesterol Level 170 mg/dL (0-200) LDL Cholesterol, Calculated 87 mg/dL (0-100) VLDL Cholesterol, Calculated 56 mg/dL (0-40) Non-HDL Cholesterol Calculated 143 mg/dL (0-129) HDL Cholesterol 27 mg/dL (40-60) Cholesterol/HDL Ratio 6.3 Test 08/17/21 10:45 Glucose (Fingerstick) 204 mg/dL (70-99) Medications Current Medications Aspirin (Ecotrin) 325 mg 1X ONCE PO Last administered on 08/16/21at 07:43; Start 08/16/21 at 07:30; Stop 08/16/21 at 07:31; Status DC Ondansetron HCl (Zofran) 4 mg PRN Q8HRS PRN IVP NAUSEA/VOMITING; Start 08/16/21 at 07:30; Stop 2/1/22 at 07:29; Status DC Acetaminophen (Tylenol) 650 mg PRN Q4HRS PRN PO pain or fever; Start 08/16/21 at 07:30; Stop 08/17/21 at 07:59; Status DC Sodium Chloride 1,000 ml @ 75 mls/hr 1X ONCE IV Last administered on 08/16/21at 07:44; Start 08/16/21 at 07:30; Stop 08/16/21 at 20:49; Status DC Potassium Chloride (Klor-Con) 40 meq 1X ONCE PO Last administered on 08/16/21at 11:25; Start 08/16/21 at 08:15; Stop 08/16/21 at 08:16; Status DC Amlodipine Besylate (Norvasc) 5 mg DAILY PO Last administered on 08/17/21at 08:35; Start 08/16/21 at 12:45 Insulin Human Lispro (HumaLOG) 15 units TIDWMEALS SQ ; Start 08/16/21 at 17:00; Stop 08/16/21 at 13:00; Status DC Atorvastatin Calcium (Lipitor) 20 mg QHS PO Last administered on 08/16/21at 20:38; Start 08/16/21 at 21:00; Stop 08/17/21 at 08:29; Status DC Insulin Glargine (Lantus Syringe) 20 unit QHS SQ Last administered on 08/16/21at 20:45; Start 08/16/21 at 21:00 Insulin Human Lispro (HumaLOG) 10 units TIDWMEALS SQ ; Start 08/16/21 at 17:00; Stop 08/16/21 at 16:57; Status DC Sodium Chloride 1,000 ml @ 1,000 mls/hr 1X ONCE IV ; Start 08/16/21 at 13:45; Stop 08/16/21 at 14:44; Status DC Acetaminophen (Tylenol) 650 mg PRN Q6HRS PRN PO MILD PAIN / TEMP > 100.3'F; Start 08/16/21 at 13:45 Aspirin (Ecotrin) 325 mg DAILYWBKFT PO Last administered on 08/17/21at 08:35; Start 08/17/21 at 08:00 Aspirin (Aspirin Rectal Supp) 300 mg PRN DAILY PRN AL IF UNABLE TO TAKE PO; Start 08/16/21 at 13:45 Iohexol (Omnipaque 300 Mg/ml) 75 ml 1X ONCE IV Last administered on 08/16/21at 14:55; Start 08/16/21 at 14:30; Stop 08/16/21 at 14:31; Status DC Info (CONTRAST GIVEN -- Rx MONITORING) 1 each PRN DAILY PRN MC SEE COMMENTS; Start 08/16/21 at 14:30; Stop 08/18/21 at 14:29 Insulin Human Lispro (HumaLOG) 0-9 UNITS TIDWMEALS SQ Last administered on 08/17/21at 12:02; Start 08/16/21 at 17:00 Dextrose (Dextrose 50%-Water Syringe) 12.5 gm PRN Q15MIN PRN IV SEE COMMENTS; Start 08/16/21 at 17:00 Anastrozole (Arimidex) 1 mg QMWF PO ; Start 08/18/21 at 16:00 Clonidine HCl (Catapres) 0.1 mg QHS PO Last administered on 08/16/21at 20:38; Start 08/16/21 at 21:00 Duloxetine HCl (Cymbalta) 30 mg QHS PO Last administered on 08/16/21at 20:38; Start 08/16/21 at 21:00 Tramadol HCl (Ultram) 50 mg PRN DAILY PRN PO MODERATE - SEVERE PAIN; Start 08/16/21 at 17:00 Trazodone HCl (Desyrel) 50 mg QHS PO Last administered on 08/16/21at 20:38; Start 08/16/21 at 21:00 Gabapentin (Neurontin) 1,200 mg TID PO Last administered on 08/17/21at 08:37; Start 08/16/21 at 21:00 Hydralazine HCl (Apresoline Inj) 10 mg PRN Q4HRS PRN IVP ELEVATED BP, SEE COMMENTS Last administered on 08/17/21at 03:05; Start 08/16/21 at 17:00 Olanzapine (ZyPREXA ZYDIS) 5 mg PRN BID PRN PO ANXIETY / AGITATION; Start 08/16/21 at 17:00 Atorvastatin Calcium (Lipitor) 80 mg QHS PO ; Start 08/17/21 at 21:00 Potassium Chloride (Klor-Con) 40 meq 1X ONCE PO ; Start 08/17/21 at 12:30; Stop 08/17/21 at 12:35; Status DC Active Scripts Active Reported Fish Oil 500 mg Softgel ([place]-3/Dha/Epa/Fish Oil) 1 Each Capsule 1 Each PO DAILY Benicar (Olmesartan Medoxomil) 40 Mg Tablet 1 Tab PO DAILY 30 Days Norvasc (Amlodipine Besylate) 5 Mg Tablet 1 Tab PO DAILY Clonidine Hcl 0.1 Mg Tablet 1 Tab PO QHS Glimepiride 4 Mg Tablet 1 Tab PO DAILY Tramadol Hcl 50 Mg Tablet 50 Mg PO DAILY PRN Hydrochlorothiazide 25 Mg Tablet 25 Mg PO DAILY Arimidex (Anastrozole) 1 Mg Tablet 1 Tab PO QMWF 30 Days Cymbalta (Duloxetine Hcl) 30 Mg Capsule.dr 1 Cap PO QHS Metformin Hcl 500 Mg Tablet 1,000 Mg PO BIDWMEALS Gabapentin 600 Mg Tablet 1,200 Mg PO TID Trazodone Hcl 50 Mg Tablet 1 Tab PO QHS Cinnamon (Cinnamon Bark) 500 Mg Capsule 500 Mg PO QHS Cinnamon (Cinnamon Bark) 500 Mg Capsule 1,000 Mg PO DAILY Vitals/I & O Vital Sign - Last 24 Hours 08/16/21 08/16/21 08/16/21 08/16/21 15:47 17:30 19:55 20:10 Temp 98.1 96.1 98.1 96.1 Pulse 98 98 80 Resp 20 18 B/P (MAP) 181/105 (130) 181/105 179/100 (126) Pulse Ox 97 100 O2 Delivery Room Air Room Air 08/16/21 08/16/21 08/17/21 08/17/21 20:38 23:05 03:01 03:05 Temp 98.2 98.3 98.2 98.3 Pulse 80 79 90 90 Resp 18 16 B/P (MAP) 179/100 166/87 (113) 192/103 (132) 192/103 Pulse Ox 99 99 O2 Delivery Room Air Room Air 08/17/21 08/17/21 08/17/21 08/17/21 07:00 08:10 08:35 11:00 Temp 98.1 98.4 98.1 98.4 Pulse 100 90 91 Resp 19 19 B/P (MAP) 163/81 (108) 192/103 178/98 (124) Pulse Ox 98 95 O2 Delivery Room Air Room Air Room Air Intake and Output 08/16/21 08/16/21 08/17/21 15:00 23:00 07:00 Intake Total 1000 ml 60 ml 0 ml Output Total 300 ml Balance 1000 ml -240 ml [address] angiography head and neck with contrast Stenosis calculations for CT, MR, and conventional angiography are based upon measurements of the distal ICA diameter in accordance with the NASCET methodology. Stenosis calculations for carotid ultrasound studies are derived from validated velocity criteria which are known to correlate with the NASCET methodology. PQRS statement: CT scans at this facility use dose reduction including either automated exposure control, iterative reconstructions, and /or weight based radiation dosing via mA and kV modification when appropriate to reduce radiation dose to as low as reasonably achievable. History left sided transient ischemic attack symptoms. Contrast: 60 mL Omnipaque 300 intravenous contrast with 3-D MIP reconstructions of the arteries acquired. COMPARISON: Carotid Doppler ultrasound August 16, 2021 CTA neck findings: common ostium of the innominate and left common carotid arteries from the aortic arch. No ostial stenosis of the vessels arising from t he aortic arch. Right vertebral artery is mildly dominant. No sizable plaque, vessel irregularity, dissection, thrombosis, stenosis or occlusion. There is a tiny 2 mm calcified plaque at the right carotid artery bifurcation without stenosis. Mild changes of cervical disc disease. CTA head findings: Tortuosity of the vertebral and basilar arteries. Mild calcified plaque right vertebral artery wasn't imaged in stenosis. There may be some mild soft plaquing of the basilar artery without narrowing and stenosis with narrowing of less than 50%. Patent left posterior communicating artery. Very mild calcified plaque cavernous carotid arteries without significant stenosis. The right middle cerebral artery proximal M1 segment at its origin from the carotid terminus demonstrates a short segment moderate stenosis with a minimal luminal diameter of approximately 1.5 mm relative to the more normal downstream diameter of the MCA of 2.8 mm indicating a stenosis of 50% or slightly greater. There is no thrombosis, occlusion or aneurysm of the intracranial arteries. IMPRESSION: 1. No large vessel occlusion. 2. Plaquing of arteries of the head and neck. This contributes to a moderate stenosis of the right middle cerebral artery. See above. EXAM: Two-dimensional and M-mode echocardiogram with Doppler and color Doppler. Other Information Quality : Average HR: 89bpm Rhythm : NSR INDICATION CVA/TIA RISK FACTORS Hypertension Obesity Hyperlipidemia 2D DIMENSIONS RVDd 3.1 (2.9-3.5cm) Left Atrium(2D) 4.0 (1.6-4.0cm) IVSd 1.3 (0.7-1.1cm) Aortic Root(2D) 4.2 (2.0-3.7cm) LVDd 5.1 (3.9-5.9cm) LVOT Diameter 2.2 (1.8-2.4cm) PWd 1.4 (0.7-1.1cm) LVDs 2.8 (2.5-4.0cm) FS (%) 45.2 % SV 93.7 ml LVEF(%) 76.3 (>50%) Aortic Valve AoV Peak Howard. 176.6cm/s AoV VTI 29.5cm AO Peak GR. 12.5mmHg LVOT Peak Howard. 150.5cm/s AO Mean GR. 6mmHg JOEL (VMAX) 3.12cm2 Mitral Valve MV E Velocity 63.6cm/s MV DECEL TIME 301ms MV A Velocity 100.4cm/s E/A Ratio 0.6 Pulmonary Valve PV Peak Velocity 138.0cm/s Tricuspid Valve TR P. Velocity 249cm/s TR Peak Gr. 25mmHg LEFT VENTRICLE The left ventricle is normal size. There is mild concentric left ventricular hypertrophy. The left ventricular systolic function is normal. Estimated ejection fraction 60-65%. There is normal LV segmental wall motion. Transmitral Doppler flow pattern is Grade I-abnormal relaxation pattern. RIGHT VENTRICLE The right ventricle is normal size. There is normal right ventricular wall thickness. The right ventricular systolic function is normal. ATRIA The left atrium size is normal. The right atrium size is normal. The interatrial septum is intact with no evidence for an atrial septal defect or patent foramen ovale as noted on 2-D or Doppler imaging. AORTIC VALVE The aortic valve is thickened but opens well. Doppler and Color Flow revealed trace aortic regurgitation. There is no significant aortic valvular stenosis. MITRAL VALVE The mitral valve is normal in structure and function. There is no evidence of mitral valve prolapse. There is no mitral valve stenosis. Doppler and Color Flow revealed no mitral valve regurgitation noted. TRICUSPID VALVE The tricuspid valve is normal in structure and function. Doppler and Color Flow revealed no tricuspid valve regurgitation noted. There is no tricuspid valve stenosis. PULMONIC VALVE The pulmonary valve is normal in structure and function. Doppler and Color Flow revealed no pulmonic valvular regurgitation. GREAT VESSELS The aortic root is mildly enlarged. The ascending aorta is Mildly dilated. The IVC is normal in size and collapses >50% with inspiration. PERICARDIAL EFFUSION There is no evidence of significant pericardial effusion. Critical Notification Critical Value: No <Conclusion> The left ventricular systolic function is normal. Estimated ejection fraction 60-65%. There is normal LV segmental wall motion. Transmitral Doppler flow pattern is Grade I-abnormal relaxation pattern. Trace aortic regurgitation. There is no evidence of significant pericardial effusion. Justicifation of Admission Dx: Justifications for Admission: Justification of Admission Dx: N/A CAIT DELANEY MD Aug 17, 2021 12:58
--- NOTE | 2021-08-17 13:35 | NUR ---
SS following for discharge planning. SS reviewed pt chart and discussed with pt RN. Pt is from home and is currently on room air. Neurology following. MRI ordered. PT/OT recommended home independent. PO diet. Discharge plan is currently to home when medically ready for discharge. SS will continue to follow for discharge planning.
[2021-08-17] MEDS ORDERED: ATOR40TA59 PO (15:36)
[2021-08-17] MEDS ORDERED: ASPI325T11 PO (15:36)
--- NOTE | 2021-08-17 15:40 | PDOC3 ---
Discharge Summary Visit Information Date of Admission: Aug 16, 2021 Date of Discharge: Aug 17, 2021 Admitting Diagnosis: Left sided weakness Final Diagnosis Problems Medical Problems: (1) TIA (transient ischemic attack) Status: Acute Brief Hospital Course Allergies Allergies Coded Allergies Type Severity Reaction Last Updated Verified No Known Drug Allergies 08/16/21 No Vital Signs Vital Signs Date Time Temp Pulse Resp B/P (MAP) Pulse Ox O2 Delivery O2 Flow Rate FiO2 08/17/21 11:00 98.4 91 19 178/98 (124) 95 Room Air 98.4 Lab Results Laboratory Tests Test 08/16/21 06:35 08/16/21 11:15 08/16/21 16:56 08/16/21 20:42 White Blood Count 12.2 x10^3/uL (4.0-11.0) Red Blood Count 5.06 x10^6/uL (4.30-5.70) Hemoglobin 15.0 g/dL (13.0-17.5) Hematocrit 42.7 % (39.0-53.0) Mean Corpuscular Volume 85 fL (79-100) Mean Corpuscular Hemoglobin 30 pg (25-35) Mean Corpuscular Hemoglobin Concent 35 g/dL (31-37) Red Cell Distribution Width 14.4 % (11.5-14.5) Platelet Count 158 x10^3/uL (140-400) Neutrophils (%) (Auto) 72 % (31-73) Lymphocytes (%) (Auto) 18 % (24-48) Monocytes (%) (Auto) 6 % (0-9) Eosinophils (%) (Auto) 3 % (0-3) Basophils (%) (Auto) 0 % (0-3) Neutrophils # (Auto) 8.8 x10^3/uL (1.8-7.7) Lymphocytes # (Auto) 2.2 x10^3/uL (1.0-4.8) Monocytes # (Auto) 0.8 x10^3/uL (0.0-1.1) Eosinophils # (Auto) 0.3 x10^3/uL (0.0-0.7) Basophils # (Auto) 0.0 x10^3/uL (0.0-0.2) Sodium Level 141 mmol/L (136-145) Potassium Level 3.4 mmol/L (3.5-5.1) Chloride Level 105 mmol/L (98-107) Carbon Dioxide Level 30 mmol/L (21-32) Anion Gap 6 (6-14) Blood Urea Nitrogen 27 mg/dL (8-26) Creatinine 1.4 mg/dL (0.7-1.3) Estimated GFR (Cockcroft-Gault) 51.0 Glucose Level 85 mg/dL (70-99) Calcium Level 8.6 mg/dL (8.5-10.1) Phosphorus Level 3.4 mg/dL (2.6-4.7) Magnesium Level 2.1 mg/dL (1.8-2.4) Creatine Kinase 126 U/L (39-308) Troponin I High Sensitivity 11 ng/L (4-75) Urine Collection Type Unknown Urine Color Yellow Urine Clarity Clear Urine pH 6.0 (<5.0-8.0) Urine Specific [place] 1.015 (1.000-1.030) Urine Protein Negative mg/dL (NEG-TRACE) Urine Glucose (UA) 100 mg/dL (NEG) Urine Ketones (Stick) Negative mg/dL (NEG) Urine Blood Negative (NEG) Urine Nitrite Negative (NEG) Urine Bilirubin Negative (NEG) Urine Urobilinogen Dipstick 0.2 mg/dL (0.2 mg/dL) Urine Leukocyte Esterase Negative (NEG) Urine RBC 0 /HPF (0-2) Urine WBC 1-4 /HPF (0-4) Urine Squamous Epithelial Cells Few /LPF Urine Bacteria 0 /HPF (0-FEW) Urine Hyaline Casts Occasional /HPF Glucose (Fingerstick) 139 mg/dL (70-99) 207 mg/dL (70-99) Test 08/17/21 04:35 08/17/21 07:34 08/17/21 10:45 White Blood Count 9.4 x10^3/uL (4.0-11.0) Red Blood Count 5.16 x10^6/uL (4.30-5.70) Hemoglobin 15.1 g/dL (13.0-17.5) Hematocrit 43.2 % (39.0-53.0) Mean Corpuscular Volume 84 fL (79-100) Mean Corpuscular Hemoglobin 29 pg (25-35) Mean Corpuscular Hemoglobin Concent 35 g/dL (31-37) Red Cell Distribution Width 14.6 % (11.5-14.5) Platelet Count 152 x10^3/uL (140-400) Neutrophils (%) (Auto) 71 % (31-73) Lymphocytes (%) (Auto) 19 % (24-48) Monocytes (%) (Auto) 5 % (0-9) Eosinophils (%) (Auto) 4 % (0-3) Basophils (%) (Auto) 1 % (0-3) Neutrophils # (Auto) 6.7 x10^3/uL (1.8-7.7) Lymphocytes # (Auto) 1.8 x10^3/uL (1.0-4.8) Monocytes # (Auto) 0.5 x10^3/uL (0.0-1.1) Eosinophils # (Auto) 0.4 x10^3/uL (0.0-0.7) Basophils # (Auto) 0.0 x10^3/uL (0.0-0.2) Sodium Level 142 mmol/L (136-145) Potassium Level 3.4 mmol/L (3.5-5.1) Chloride Level 104 mmol/L (98-107) Carbon Dioxide Level 28 mmol/L (21-32) Anion Gap 10 (6-14) Blood Urea Nitrogen 20 mg/dL (8-26) Creatinine 1.0 mg/dL (0.7-1.3) Estimated GFR (Cockcroft-Gault) 75.2 BUN/Creatinine Ratio 20 (6-20) Glucose Level 172 mg/dL (70-99) Calcium Level 8.4 mg/dL (8.5-10.1) Total Bilirubin 0.6 mg/dL (0.2-1.0) Aspartate Amino Transf (AST/SGOT) 22 U/L (15-37) Alanine Aminotransferase (ALT/SGPT) 51 U/L (16-63) Alkaline Phosphatase 66 U/L (46-116) Total Protein 7.2 g/dL (6.4-8.2) Albumin 3.4 g/dL (3.4-5.0) Albumin/Globulin Ratio 0.9 (1.0-1.7) Triglycerides Level 281 mg/dL (0-150) Cholesterol Level 170 mg/dL (0-200) LDL Cholesterol, Calculated 87 mg/dL (0-100) VLDL Cholesterol, Calculated 56 mg/dL (0-40) Non-HDL Cholesterol Calculated 143 mg/dL (0-129) HDL Cholesterol 27 mg/dL (40-60) Cholesterol/HDL Ratio 6.3 Glucose (Fingerstick) 167 mg/dL (70-99) 204 mg/dL (70-99) Laboratory Tests Test 08/16/21 16:56 08/16/21 20:42 08/17/21 04:35 08/17/21 07:34 Glucose (Fingerstick) 139 mg/dL (70-99) 207 mg/dL (70-99) 167 mg/dL (70-99) White Blood Count 9.4 x10^3/uL (4.0-11.0) Red Blood Count 5.16 x10^6/uL (4.30-5.70) Hemoglobin 15.1 g/dL (13.0-17.5) Hematocrit 43.2 % (39.0-53.0) Mean Corpuscular Volume 84 fL (79-100) Mean Corpuscular Hemoglobin 29 pg (25-35) Mean Corpuscular Hemoglobin Concent 35 g/dL (31-37) Red Cell Distribution Width 14.6 % (11.5-14.5) Platelet Count 152 x10^3/uL (140-400) Neutrophils (%) (Auto) 71 % (31-73) Lymphocytes (%) (Auto) 19 % (24-48) Monocytes (%) (Auto) 5 % (0-9) Eosinophils (%) (Auto) 4 % (0-3) Basophils (%) (Auto) 1 % (0-3) Neutrophils # (Auto) 6.7 x10^3/uL (1.8-7.7) Lymphocytes # (Auto) 1.8 x10^3/uL (1.0-4.8) Monocytes # (Auto) 0.5 x10^3/uL (0.0-1.1) Eosinophils # (Auto) 0.4 x10^3/uL (0.0-0.7) Basophils # (Auto) 0.0 x10^3/uL (0.0-0.2) Sodium Level 142 mmol/L (136-145) Potassium Level 3.4 mmol/L (3.5-5.1) Chloride Level 104 mmol/L (98-107) Carbon Dioxide Level 28 mmol/L (21-32) Anion Gap 10 (6-14) Blood Urea Nitrogen 20 mg/dL (8-26) Creatinine 1.0 mg/dL (0.7-1.3) Estimated GFR (Cockcroft-Gault) 75.2 BUN/Creatinine Ratio 20 (6-20) Glucose Level 172 mg/dL (70-99) Calcium Level 8.4 mg/dL (8.5-10.1) Total Bilirubin 0.6 mg/dL (0.2-1.0) Aspartate Amino Transf (AST/SGOT) 22 U/L (15-37) Alanine Aminotransferase (ALT/SGPT) 51 U/L (16-63) Alkaline Phosphatase 66 U/L (46-116) Total Protein 7.2 g/dL (6.4-8.2) Albumin 3.4 g/dL (3.4-5.0) Albumin/Globulin Ratio 0.9 (1.0-1.7) Triglycerides Level 281 mg/dL (0-150) Cholesterol Level 170 mg/dL (0-200) LDL Cholesterol, Calculated 87 mg/dL (0-100) VLDL Cholesterol, Calculated 56 mg/dL (0-40) Non-HDL Cholesterol Calculated 143 mg/dL (0-129) HDL Cholesterol 27 mg/dL (40-60) Cholesterol/HDL Ratio 6.3 Test 08/17/21 10:45 Glucose (Fingerstick) 204 mg/dL (70-99) Brief Hospital Course TIA - Acute left sided weakness, transient CONCETTA - likely vasomotor nephropathy. hydration encouraged. Improved Obese, BMI 36 HTN - on norvasc. consider ANGELICA/ARB outpatient DM2, metformin and insulin, with neuropathy on gabapentin, hypokalemia - replaced MR. Correa is a 66 year old male w/ PMHx DM2 with neuropathy, HTN who came in 08/16/21 admit for left sided weakness. He was work at [employer], has 3 episodes of acute left sided weakness, first was short and limited and improved after a few minutes. Second was more severe and he could not walk and needed a wheelchair and assistance and EMS was called. Already improved in ED on evaluation. Strong family history, dad of CVA x4, mom of CAD age 58,. younger brother with mult heart attacks. his primary care is Dr. Kerr, from [place], [place]. He takes 70/30 insulin on a PRN basis, once a day if his blood sugar is > 160 08/17: Echocardiogram with CT a with no acute abnormalities. Telemetry reviewed sinus tach he no A. fib. Started on high intensity statin. Therapy evaluations. Awaiting MRI. CTA with moderate right carotid artery disease. MRI 1. No acute intracranial abnormality. 2. Small right superior frontal extra-axial mass, most likely meningioma. 3. Small chronic left cerebellar lacunar infarcts. Discharge Information Scheduled Amlodipine Besylate (Norvasc) 5 Mg Tablet, 1 TAB PO DAILY for HTN, #30 Ref 5 (Reported) Entered as Reported by: ALIX ZUNIGA on 08/16/211551 Last Taken: Unknown Dose on Unknown Date & Time Last Action: Reviewed on 08/16/211552 by ALIX ZUNIGA Anastrozole (Arimidex) 1 Mg Tablet, 1 TAB PO QMWF for CA for 30 Days, #30 Ref 0 (Reported) Entered as Reported by: ALIX ZUNIGA on 08/16/211551 Last Taken: Unknown Dose on Unknown Date & Time Last Action: Continued on 08/16/211657 by LEA YANCEY MD Aspirin (Aspirin Ec) 325 Mg Tablet.dr, 325 MG PO DAILYWBKFT for Right carotid artery disease for 30 Days, #30 Ref 11 Prescribed by: LEA YANCEY MD on 08/17/21 1536 Atorvastatin Calcium (Atorvastatin Calcium) 40 Mg Tablet, 40 MG PO QHS for HLD/DM2 for 30 Days, #30 Ref 11 Prescribed by: LEA YANCEY MD on 08/17/21 1536 Cinnamon Bark (Cinnamon) 500 Mg Capsule, 1,000 MG PO DAILY for supplement, (Reported) Entered as Reported by: ALIX ZUNIGA on 08/16/211551 Last Taken: Unknown Dose on Unknown Date & Time Last Action: Reviewed on 08/16/211552 by ALIX ZUNIGA Cinnamon Bark (Cinnamon) 500 Mg Capsule, 500 MG PO QHS for supplement, (Reported) Entered as Reported by: ALIX ZUNIGA on 08/16/211551 Last Taken: Unknown Dose on Unknown Date & Time Last Action: Reviewed on 08/16/211552 by ALIX ZUNIGA Clonidine Hcl (Clonidine Hcl) 0.1 Mg Tablet, 1 TAB PO QHS for HTN, #30 Ref 2 (Reported) Entered as Reported by: ALIX ZUNIGA on 08/16/211551 Last Taken: Unknown Dose on Unknown Date & Time Last Action: Continued on 08/16/211657 by LEA YANCEY MD Duloxetine Hcl (Cymbalta) 30 Mg Capsule.dr, 1 CAP PO QHS for depression , #30 Ref 5 (Reported) Entered as Reported by: ALIX ZUNIGA on 08/16/211551 Last Taken: Unknown Dose on Unknown Date & Time Last Action: Continued on 08/16/211657 by LEA YANCEY MD Gabapentin (Gabapentin) 600 Mg Tablet, 1,200 MG PO TID for NEUROGENIC PAIN, (Reported) Entered as Reported by: ALIX ZUNIGA on 08/16/211551 Last Taken: Unknown Dose on Unknown Date & Time Last Action: Converted on 08/16/211657 by LEA YANCEY MD Glimepiride (Glimepiride) 4 Mg Tablet, 1 TAB PO DAILY for DM, #30 Ref 5 (Reported) Entered as Reported by: ALIX ZUNIGA on 08/16/211551 Last Taken: Unknown Dose on Unknown Date & Time Last Action: Reviewed on 08/16/211552 by ALIX ZUNIGA Metformin Hcl (Metformin Hcl) 500 Mg Tablet, 1,000 MG PO BIDWMEALS for ANTI- DIABETIC, Ref 0 (Reported) Entered as Reported by: ALIX ZUNIGA on 08/16/211551 Last Taken: Unknown Dose on Unknown Date & Time Last Action: HELD on 08/16/211656 by LEA YANCEY MD Olmesartan Medoxomil (Benicar) 40 Mg Tablet, 1 TAB PO DAILY for HTN for 30 Days, #30 Ref 0 (Reported) Entered as Reported by: ALIX ZUNIGA on 08/16/211551 Last Taken: Unknown Dose on Unknown Date & Time Last Action: Reviewed on 08/16/211552 by ALIX ZUNIGA [place]-3/Dha/Epa/Fish Oil (Fish Oil 500 mg Softgel) 1 Each Capsule, 1 EACH PO DAILY for supplement, (Reported) Entered as Reported by: ALIX ZUNIGA on 08/16/211551 Last Taken: Unknown Dose on Unknown Date & Time Last Action: Reviewed on 08/16/211552 by ALIX ZUNIGA Trazodone Hcl (Trazodone Hcl) 50 Mg Tablet, 1 TAB PO QHS for insomnia, #30 Ref 1 (Reported) Entered as Reported by: ALIX ZUNIGA on 08/16/211551 Last Taken: Unknown Dose on Unknown Date & Time Last Action: Continued on 08/16/211657 by LEA YANCEY MD Scheduled PRN Tramadol Hcl (Tramadol Hcl) 50 Mg Tablet, 50 MG PO DAILY PRN for PAIN, Ref 0 (Reported) Entered as Reported by: ALIX ZUNIGA on 08/16/211551 Last Taken: Unknown Dose on Unknown Date & Time Last Action: Continued on 08/16/211657 by LEA YANCEY MD Discontinued Medications Hydrochlorothiazide (Hydrochlorothiazide) 25 Mg Tablet, 25 MG PO DAILY for HTN, (Reported) Entered as Reported by: ALIX ZUNIGA on 08/16/211551 Last Taken: Unknown Dose on Unknown Date & Time Last Action: HELD on 1656 by LEA YANCEY MD Justicifation of Admission Dx: Justifications for Admission: Justification of Admission Dx: N/A LEA YANCEY MD Aug 17, 2021 15:40
--- NOTE | 2021-08-17 16:02 | RAD ---
MRI BRAIN WO History:Reason: TIAs left side of body / Spl. Instructions: / History: Technique: Multiplanar, multi sequential MR imaging was performed of the brain without contrast. Comparison: CT August 16, 2021 Findings: No acute infarct. No intracranial hemorrhage. No mass effect. No hydrocephalus. Mild brain parenchymal volume loss. Mild foci of FLAIR hyperintensities within the hemispheric white matter, most often due to chronic microvascular ischemia. Small chronic left cerebellar lacunar infarcts. Small right superior frontal extra-axial mass measures 0.9 x 0.5 cm (series [id number] image 18). Were anterior frontal scalp cutaneous lesion measures 0.5 cm. Imaged orbits are unremarkable. Imaged paranasal sinuses and mastoid air cells are clear. Impression: 1. No acute intracranial abnormality. 2. Small right superior frontal extra-axial mass, most likely meningioma. 3. Small chronic left cerebellar lacunar infarcts. Electronically signed by: Avery Estevez DO (08/17/2021 4:00 PM) [facility]
--- NOTE | 2021-08-17 16:35 | NUR ---
PATIENT DISCHARGED AT THIS TIME. DC MEDICATION LIST, AND ORDERS COVERED WITH PATIENT. ALL PERTINENT QUESTIONS ANSWERED. PIV AND TELE DISCONTINUED. AMBULATES TO FRONT DOORS WITH SISTER AND FACILITY STAFF.
[2021-08-17] MEDS ORDERED: ATORVASTATIN CALCIUM 40 MG TABLET. PO SCH (21:00)
[2021-08-18 03:09] LABS: HEMOGLOBIN A1C 6.9 % (4.8-5.6)
[2021-08-18] MEDS ORDERED: ANASTROZOLE 1 MG TABLET PO SCH (16:00)
== END 2021-08-17 16:30 | disposition home or self-care (01) ==
LOC: ER 06:24 → ED HOLD 07:20 → 6 SOUTH 11:05
PROVIDERS: ADMIT Internal Medicine; ATTEND Internal Medicine
DX: G45.9 Transient cerebral ischemic attack, unspecified (principal); N17.0 Acute kidney failure with tubular necrosis; I13.10 Hypertensive heart and chronic kidney disease without heart failure, with stage 1 through stage 4 chronic kidney disease, or unspecified chronic kidney disease; N18.30 Chronic kidney disease, stage 3 unspecified; M54.50 Low back pain, unspecified; E11.22 Type 2 diabetes mellitus with diabetic chronic kidney disease; G62.9 Polyneuropathy, unspecified; E66.9 Obesity, unspecified; D32.9 Benign neoplasm of meninges, unspecified; E11.42 Type 2 diabetes mellitus with diabetic polyneuropathy; E78.5 Hyperlipidemia, unspecified; E87.6 Hypokalemia; I66.01 Occlusion and stenosis of right middle cerebral artery; G47.00 Insomnia, unspecified; F32.A Depression, unspecified; Z68.36 Body mass index [BMI] 36.0-36.9, adult; Z79.82 Long term (current) use of aspirin; Z79.4 Long term (current) use of insulin; Z79.84 Long term (current) use of oral hypoglycemic drugs; Z79.899 Other long term (current) drug therapy; Z98.890 Other specified postprocedural states
CPT/HCPCS: 36415; 70450; 70496; 70498; 70551; 71045; 80048; 80053; 80061; 81001; 82550; 82962; 83036; 83735; 84100; 84484; 85025; 92610; 93005; 93306; 93880; 96361; 96372; 96374; 96375; 97161; 97165; 97530; 99285; G0378; J0360; J1815; J2060; J7030; Q9967; G0379; C8929